=== PATIENT | male | born 1965 | race Caucasian/White ===

== ENCOUNTER 2019-05-09 04:52 | Inpatient (IN) ==
[2019-05-09] MEDS ORDERED: ROCEPHIN IM ONE (05:08)
[2019-05-09] MEDS ORDERED: XYLOCAINE-MPF 1% INJ ONE (05:08)
[2019-05-09] MEDS ORDERED: SEPTRA DS PO ONE (05:09)
--- NOTE | 2019-05-09 05:12 | PROVIDER DOCUMENTATION ---
HPI-Rash/Wound/ReCheck - General Chief Complaint: Return/Recheck Stated Complaint: RECHECK/STITCHES REMOVED-INFECTED Time Seen by Provider: 05/09/19 04:54 Allergies/Adverse Reactions: Allergies Allergy/AdvReac Type Severity Reaction Status Date / Time No Known Allergies Allergy Verified 04/23/19 20:13 Home Medications: Home Medication List Medication Instructions Recorded Confirmed Last Taken Type Cephalexin [Keflex] 500 mg PO TID #30 cap 04/23/19 Unknown Rx Hydrocodone/Acetaminophen [[place] 1 ea PO Q6H PRN PRN #12 tab 04/23/19 Unknown Rx 5-325 Tablet] Clindamycin [Cleocin] 300 mg PO Q6HR 10 Days #40 cap 05/09/19 Unknown Rx - History of Present Illness-Dermatology Nature of Presenting Problem: 53 y/o WM c/o rt arm swelling and redness for the past two days after he says he brushed his wound on something. Pt recently (3 days ago) had sutures removed in ER from a fall that he had on a ladder about 2 weeks ago. Pt denies any other problems other than redness and mid swelling to rt forearm. Pt adds that wound has been draining some from healing lac. Location: reports: upper extremity (healing rt arm wound with thick yellow drainage) Quality: reports: painful Severity: reports: mild Onset/Duration: reports: 2 days ago Timing: reports: still present Context/Associated Symptoms: reports: laceration (healing wound to rt arm.) Identifiable cause?: Yes Locality of [place]: Home Similar Symptoms Previously?: No Recently seen or treated by another doctor?: Yes - Recheck Treated days ago.: 3 Previous Treatment: laceration repair (suture removal) Antibiotics given: none (pt did have abx while sutures were in but none for several days.) Symptoms since procedure:: reports: redness, discharge Review of Systems - Adult - REVIEW OF SYSTEMS - ADULT Constitutional: reports: no symptoms reported, see HPI Eyes: reports: no symptoms reported, see HPI Ears, Nose, Mouth & Throat: reports: no symptoms reported, see HPI Cardiovascular: reports: no symptoms reported, see HPI Respiratory: reports: no symptoms reported, see HPI Gastrointestinal: reports: no symptoms reported, see HPI Genitourinary: reports: no symptoms reported, see HPI Musculoskeletal: reports: no symptoms reported, see HPI Integumentary: reports: see HPI, other (infected lac to rt forearm that is healing.) Neurological: reports: no symptoms reported, see HPI Psychiatric: reports: no symptoms reported, see HPI Endocrine: reports: no symptoms reported, see HPI Hematologic/Lymphatic: reports: no symptoms reported, see HPI Allergic/Immunologic: reports: no symptoms reported, see HPI All Other Systems: Reviewed and Negative Past History - Adult - PAST MEDICAL HISTORY-ADULT Review of Records: reports: Nursing Assessment Review, Medications Reviewed, Social history reviewed & non-contributory. Major Childhood Illnesses: reports: denies history Cardiovascular: reports: HTN Respiratory: reports: denies history Gastrointestinal: reports: denies history Genitourinary: reports: denies history Musculoskeletal: reports: denies history Psychiatric: reports: denies history Endocrine/Immune: reports: denies history - PRIOR SURGERIES/PROCEDURES Surgical/Procedure History: reports: reviewed, not pertinent - FAMILY HISTORY Family History: reviewed, not pertinent Physical Exam-General - PHYSICAL EXAM-ADULT Initial Vital Signs Reviewed: Yes - CONSTITUTIONAL General Appearance: appears well, alert, no apparent distress - EYES Eyes: PERRL/EOMI - HEAD, EARS, NOSE, MOUTH & THROAT HENMT: normocephalic/atraumatic, moist mucous membranes - NECK Neck: non-tender, full range of motion, supple - RESPIRATORY Respiratory: chest non-tender, lungs clear, normal breath sounds - CARDIOVASCULAR Cardiovascular: normal peripheral pulses, regular rate, rhythm, no edema, no gal lop, no JVD, no murmur - GASTROINTESTINAL (ABDOMEN) Abdominal Exam: normal bowel sounds, non tender, soft, no organomegaly, no pulsatile mass - LYMPHATIC Lymphatic: no adenopathy - MUSCULOSKELETAL Back Exam: normal inspection, no CVA tenderness, no vertebral tenderness, other (rt forearm N/V intact. good radial pulse. no pain with PROM.) Extremity: normal range of motion, normal capillary refill, erythema, inflammation ( erythema and swelling to rt forearm wound. there is also small amout of drainage (yellow) to forearm.) Progress - PLAN OF CARE/RESULTS Progress/Plan/Lab Results: Vital Signs - 8 hr 05/09/19 04:59 Temperature 98.3 F Pulse Rate 92 H Respiratory Rate 18 Blood Pressure 107/63 O2 Sat by Pulse Oximetry 96 05/09/19 05:30 Gram Stain - Final Arm - Right Laboratory Results - last 24 hr 05/09/19 05/09/19 05/09/19 05:30 05:30 06:40 WBC 20.26 H RBC 4.31 L Hgb 13.1 L Hct 39.0 L MCV 90.5 MCH 30.4 MCHC 33.6 RDW Std Deviation 13.2 Plt Count 248 MPV 9.7 Immature Gran % (Auto) 0.2 Neut % (Auto) 84.3 H Lymph % (Auto) 7.3 L [place] % (Auto) 7.9 Eos % (Auto) 0.2 Baso % (Auto) 0.1 Immature Gran # (Auto) 0.04 Neut # (Auto) 17.06 H Lymph # (Auto) 1.48 [place] # (Auto) 1.61 H Eos # (Auto) 0.05 Baso # (Auto) 0.02 Sodium 134 L Potassium 4.6 Chloride 100 Carbon Dioxide 21 L Anion Gap 13 BUN 26 H Creatinine 1.3 H Estimated GFR/1.73 m2 58 BUN/Creatinine Ratio 20 Glucose 133 H Calculated Osmolality 275 Calcium 8.5 L Total Bilirubin 0.26 AST 11 ALT 10 Alkaline Phosphatase 52 Total Protein 6.9 Albumin 4.3 Globulin 2.6 Albumin/Globulin Ratio 1.7 Plasma Lactate 1.4 Orders Category Date Time Status BLOOD CULTURE [BLDCUL] Stat Lab 05/09/19 07:20 Results CBC WITH ELECTRONIC DIFF [HEME] Stat Lab 05/09/19 05:30 Completed COMPREHENSIVE METABOLIC PANEL [CHEM] Stat Lab 05/09/19 05:30 Completed LACTATE, PLASMA [CHEM] Stat Lab 05/09/19 06:40 Completed WOUND CULTURE INC GRAM STAIN [RM] Routine Lab 05/09/19 05:30 Results CefTRIAXONE [Rocephin] Med 05/09/19 05:08 Discontinued 1 gm IM NOW ONE Lidocaine 1% Pf [Xylocaine-Mpf 1%] Med 05/09/19 05:08 Discontinued 5 ml INJ NOW ONE Sulfamethoxazole/Tmp D.s. [Septra Ds] Med 05/09/19 05:09 Discontinued 1 each PO NOW ONE Venous U/S Right Arm Stat Ther 05/09/19 06:18 Completed Result Diagrams: 05/09/19 05:30 05/09/19 05:30 - REASSESSMENT Reassessment #1 Time Reassessed: 10:08 (receved @ S/O. Seen, examines. Arm is markedly swollen. sl erythema) - CONSULTS/PCP/HOSPITALIST Notification #1 *Consult/PCP/Hospitalist*: Hospitalist Time Discussed: 10:30 Consult Disposition: Will see in ED, Admit - CHANGE OF SHIFT REPORT (ED Provider) 1 Report Given and Care Transferred to:: Dr Kinney Time of Transfer: 07:00 Items Pending: Labs, Ultrasound Results Departure - Departure Date of Disposition Decision: 05/09/19 Time of Disposition Decision: 10:30 DIAGNOSIS: Right forearm cellulitis Disposition: ADMITTED INPATIENT 09 Certified Medical Emergency: Emergent Condition: Stable Additional Freetext Instructions: Follow up with your dR in 1-2 days, to ER sooner if worse. ED Follow Up Instructions: You have been treated by a care provider in the Emergency Department. These instructions are being provided to you so you can have an understanding of how to care for yourself upon discharge. Upon discharge from the Emergency Department, you are responsible for making arrangements for follow-up care by a physician of your choice. Take all prescribed medications as directed. Return to the Emergency Department immediately for any new or worsening symptoms. You may call the Physician Referral phone number at [phone] to obtain a list of Physicians who are taking new patients. Prescriptions: Clindamycin [Cleocin] 300 mg PO Q6HR 10 Days #40 cap Referrals and Follow-Ups: Alisia Farris MD [Primary Care Provider] - Discharge Education: Cellulitis, Adult, Wound Infection, [id number], Cellulitis, Adult, [id number], Wound Care, Adult - Critical Care Note This patient required my direct & personal management of CC.: No Attestation - Physician/ CATINA Attestation Patient care was provided by Advanced Practice Provider:: No The physician spent face to face time with patient:: Yes Advanced Practice Provider documentation review:: Supervising physician onsite and consulted in the evaluation and care of this patient. The physician did have a face to face encounter with the patient.
[2019-05-09 05:56] LABS: BASO# 0.02 X1000 (0.0-0.2); BASO% 0.1 % (0.0-0.8); EOS# 0.05 X1000 (0.0-0.7); EOS% 0.2 % (0.0-10.0); HEMOGLOBIN 13.1 g/dL (14.0-18.0); IMM GRAN# 0.04 X1000 (0.0-0.04); IMM GRAN% 0.2 % (0.0-0.5); LYMPH# 1.48 X1000 (1.2-3.4); LYMPH% 7.3 % (20.5-51.1); MCH 30.4 PG (27-31); MCHC 33.6 g/dL (33-37); MCV 90.5 FL (81-99); MONO# 1.61 X1000 (0.11-0.59); MONO% 7.9 % (1.7-9.3); MPV 9.7 FL (7.4-10.4); NEUT# 17.06 X1000 (1.4-6.5); NEUT% 84.3 % (42.2-75.2); PLT 248 X1000 (130-400); RBC 4.31 XMIL (4.7-6.1); RDW 13.2 % (11.5-14.5); WBC 20.26 X1000 (4.8-10.8)
[2019-05-09 07:51] LABS: ALB/GLOB RATIO 1.7; ALBUMIN 4.3 g/dL (3.5-5.0); CALCIUM 8.5 mg/dL (8.8-10.2); CREATININE 1.3 mg/dL (0.7-1.2); POTASSIUM 4.6 mmol/L (3.5-5.1); TOTAL BILIRUBIN 0.26 mg/dL (0.20-1.00); TOTAL PROTEIN 6.9 g/dL (6.3-8.3)
[2019-05-09] MEDS ORDERED: MORPHINE IV ONE (11:00)
[2019-05-09] MEDS ORDERED: TYLENOL PO PRN (11:48)
[2019-05-09] MEDS ORDERED: ZOFRAN IV PRN (11:48)
[2019-05-09] MEDS ORDERED: ZANAFLEX PO PRN (11:54)
[2019-05-09] MEDS ORDERED: MORPHINE IV PRN (11:59)
[2019-05-09] MEDS ORDERED: VANCOMYCIN IV PER PHARMACY MISC SCH (12:00)
[2019-05-09] MEDS ORDERED: ROCEPHIN 1 GM in NS 50 ML IV SCH (12:00)
[2019-05-09] MEDS ORDERED: MAXIPIME 1 GM in NS 50 ML IV SCH (12:15)
[2019-05-09 12:26] LABS: INR 2.26; PROTIME 26.6 Seconds (11.0-16.0)
[2019-05-09] MEDS: NORCO-7.5 PO PRN ×2 (13:42→20:31)
[2019-05-09] MEDS: NS 1,000 ML IV SCH (13:42)
[2019-05-09] MEDS: NICODERM PATCH TD SCH (15:36)
--- NOTE | 2019-05-09 16:17 | HISTORY AND PHYSICAL ---
CHIEF COMPLAINT: Edema to right arm, with fever and dizziness. PRIMARY CARE PHYSICIAN: Dr. Holguin. HISTORY OF PRESENT ILLNESS: Mr. Carter is a 53-year-old male with a past medical history of hypertension, CVA, tobacco dependency, and chronic pain. The patient presented to the ER on 04/23/2019 where he fell off a ladder and had a laceration to the right arm. The arm was sutured in the ER. The patient was sent home on p.o. Keflex and p.o. clindamycin. The patient presented back to the ER 3 days ago and had his sutures removed. The patient has noticed that his right arm over the past 2 days has started to become edematous, with notable pain and erythema. He said he believes that the pain is worse since he bumped his arm up against something. The patient subsequently decided to come to the ER today when he noticed drainage from the wound and the pain was worse. The patient states that he did finish all his antibiotics and he thought the arm was better until 2 days ago. The patient's right arm is noted to be very edematous with a lot of erythema noted along the lower part of the right arm. There is a scab noted to the lateral part of the right arm that does have a small amount of drainage at the very end of the scab. The laceration seems to be mostly closed with the scab. The patient states that his arm is very painful to touch. He does state that he has had fevers and he has been very dizzy. The patient seems in somewhat distress from the pain at the present time. The patient states that he does have a history of chronic pain and takes Zanaflex and this is from the back pain and knee pain from arthritis. The patient is noted to have hypertension and takes several home medications for his hypertension. He also has history of high cholesterol and takes Crestor. The patient states that he has had a history of multiple strokes and TIA's in the past. He is on Coumadin. The patient does admit to having a carotid ultrasound done and stated there was some blockage, but he has not never had surgery to remove this blockage. The patient is on Coumadin at home for this and is followed by Dr. Mandujano with PT and INRs routinely. The patient denies any chest pain at this time. Does state he has had a cough. Did note some rhonchi to the left upper anterior chest wall. Upon expiration. The patient does state he has had some congestion with his cough but has not been able to produce any mucus. LABORATORY: Findings in the ER show a white blood cell count of 20.26, with a sodium of 134 with a BUN of 26 and a creatinine of 1.3. Plasma lactate was negative at at 1.4. PT, INR showed a PT of 26.6, an INR of 2.26. PAST MEDICAL HISTORY: Hypertension, CVA, TIA, chronic pain, hyperlipidemia. PAST SURGICAL HISTORY: Appendectomy. FAMILY HISTORY: Mother from lung cancer and father from diabetes. A sister from hypertension. A brother from an [place]. SOCIAL HISTORY: Patient lives in [place]. States he works at [employer]. He was on vacation when he fell off the ladder and hurt his elbow and he has hardly been able to work since then. The patient admits to smoking half a pack of cigarettes a day. He denies any illicit drug or alcohol abuse. ALLERGIES: No known drug allergies. MEDICATIONS: 1. Elavil 50 mg p.o. at bedtime. 2. Norvasc 10 mg p.o. daily. 3. Atenolol 50 mg p.o. every morning. 4. Keflex 500 mg p.o. t.i.d. 5. Clindamycin 300 mg p.o. q.6 hours. 6. [place] 5/325 one tablet p.o. q.6 hours p.r.n. pain. 7. Zestril 40 mg p.o. every morning. 8. Crestor 40 mg p.o. at bedtime. 9. Zanaflex 4 mg p.o. b.i.d. p.r.n. spasms. 10. Coumadin 5 mg p.o. at bedtime. LABS AND DIAGNOSTICS: White blood cell count 20.26, hemoglobin 13.1, hematocrit 39, platelet count is 248,000, PTT is 26.6, INR is 2.26, sodium is 134, potassium is 4.6, chloride is 100, carbon dioxide is 21, BUN is 26, creatinine is 1.3. Estimated GFR is 58. Glucose is 133, calcium is 8.5, bilirubin is 0.26, AST is 11, ALT is 10, alkaline phosphatase is 52. Plasma lactate is 1.4. REVIEW OF SYSTEMS: A 12 point review of systems has been performed and are negative except as stated above in the HPI this. EXAMINATION: Vital Signs: Temperature 98.6, heart rate 68, respiratory rate 18, blood pressure 113/77, O2 saturation 98% on room air. Weight 200 pounds, height 6 feet. General: This is a well-nourished, well-developed 53-year-old male lying in the ER stretcher in some what distress from pain. States he is having pain to the right arm. HEENT: Atraumatic, normocephalic. Pupils equal, round, reactive to light. Mucous membranes are moist. Neck: Supple. No lymphadenopathy. Trachea is midline. No JVD. Cardiovascular: Regular rate and rhythm. No murmurs, gallops, or rubs noted S1, S2. Respiratory: Left lung sounds. Rhonchi noted on expiration. Other lung miguel are clear with equal chest excursion. Respirations: nonlabored with no accessory muscle usage. Abdomen: Soft, nontender, nondistended. Bowel sounds are present. Neurologic: The patient is awake, alert and oriented x 3. Follows all commands. Able to move all extremities. Musculoskeletal: Full distal strength noted. No abnormalities or deformities. Extremities: No clubbing or cyanosis. No edema, except to the right arm. There is edema and erythema to Right arm noted. There is a laceration noted to the lateral aspect of the right arm. There is a large scab noted over the wound. The wound is closed. There is a small amount of drainage to the end of the scab, but the wound is mostly code close. DP and PT pulses are present and palpable. Skin: Warm, dry, mostly intact except for a laceration noted to the right lateral aspect of the arm. There is notable edema and erythema noted to the lower right arm. No diaphoresis noted. ASSESSMENT AND PLAN: 1. Right arm cellulitis. We will admit this patient to the medical floor. Start this place the patient on IV fluid hydration. We have started Maxipime and Zyvox on this patient. Dr. Khai Mclaughlin for ID has been consulted. 2. Hypertension. We have restarted the patient's home medications for hypertension. We will monitor his blood pressure routinely. 3. Chronic pain. The patient does have a history of chronic back pain and leg pain. He takes Zanaflex. I have reordered his Zanaflex. I have also ordered him [place] and for mild pain and morphine for severe pain. 4. CVA. The patient is on Coumadin at home. We will resume his Coumadin per home dose and repeat a PT and INR in the morning. His PT and INR on admit is at a therapeutic level. 5. Hyperlipidemia. We will start this patient back on his Crestor per home dose. 6. Tobacco dependency. I had started this patient on a nicotine patch. We had provided him with smoking cessation information. 7. DVT prophylaxis. We have restarted this patient's Coumadin per home dose. This should be adequate coverage for DVT prophylaxis. We will repeat a PT/INR tomorrow and adjust dose accordingly. 8. GI prophylaxis. Start this patient on Prilosec daily. Dictated by PREMA Franklin for Carolyn Jordan MD cc: Chetna Jordan MD MTDD
[2019-05-09] MEDS: ELAVIL PO SCH (20:31)
[2019-05-09] MEDS: ZYVOX PO SCH (20:31)
[2019-05-09] MEDS: CRESTOR PO SCH (20:31)
[2019-05-09] MEDS: COUMADIN PO SCH (20:31)
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
[2019-05-09] MEDS: MAXIPIME 2 GM in NS 50 ML IV SCH (20:32)
[2019-05-10] MEDS: NORCO-7.5 PO PRN ×2 (04:33→16:40)
[2019-05-10] MEDS: PRILOSEC PO SCH (05:59)
[2019-05-10 07:10] LABS: BASO# 0.02 X1000 (0.0-0.2); BASO% 0.1 % (0.0-0.8); EOS# 0.17 X1000 (0.0-0.7); EOS% 1.1 % (0.0-10.0); HEMATOCRIT 35.8 % (42.0-52.0); HEMOGLOBIN 11.9 g/dL (14.0-18.0); IMM GRAN# 0.04 X1000 (0.0-0.04); IMM GRAN% 0.3 % (0.0-0.5); LYMPH# 1.77 X1000 (1.2-3.4); LYMPH% 11.4 % (20.5-51.1); MCH 30.2 PG (27-31); MCHC 33.2 g/dL (33-37); MCV 90.9 FL (81-99); MONO# 1.34 X1000 (0.11-0.59); MONO% 8.6 % (1.7-9.3); MPV 9.6 FL (7.4-10.4); NEUT# 12.24 X1000 (1.4-6.5); NEUT% 78.5 % (42.2-75.2); PLT 212 X1000 (130-400); RBC 3.94 XMIL (4.7-6.1); RDW 13.3 % (11.5-14.5); WBC 15.58 X1000 (4.8-10.8)
[2019-05-10 07:21] LABS: INR 2.18; PROTIME 25.9 Seconds (11.0-16.0)
[2019-05-10 07:31] LABS: AGAP 10; ALB/GLOB RATIO 1.2; ALBUMIN 3.6 g/dL (3.5-5.0); ALKALINE PHOSPHATASE 44 U/L (32-122); BUN 18 mg/dL (8-22); CALCIUM 8.5 mg/dL (8.8-10.2); CHLORIDE 103 mmol/L (98-107); COSMO 270; CREATININE 1.1 mg/dL (0.7-1.2); ESTIMATED GFR > 60; GLUCOSE 103 mg/dL (70-104); GOT 8 U/L (10-34); GPT 7 U/L (10-44); POTASSIUM 4.6 mmol/L (3.5-5.1); SODIUM 134 mmol/L (136-145); TCO2 21 mmol/L (25-35); TOTAL BILIRUBIN 0.31 mg/dL (0.20-1.00); TOTAL PROTEIN 6.6 g/dL (6.3-8.3)
[2019-05-10] MEDS: MAXIPIME 2 GM in NS 50 ML IV SCH (08:53)
[2019-05-10] MEDS: NICODERM PATCH TD SCH (08:53)
[2019-05-10] MEDS: ZYVOX PO SCH ×2 (08:53→20:26)
[2019-05-10] MEDS: NS 1,000 ML IV SCH ×3 (09:18→18:11)
--- NOTE | 2019-05-10 10:47 | Diag Imaging Result Doc PS360 ---
EXAM: CT EXT UPPER RIGHT W/CONT 05/10/2019 HISTORY: swelling possible abscess TECHNIQUE: CT of the right forearm. COMMENT: There is apparent edema throughout the subcutaneous fat particularly medially. There is no discrete fluid collection to suggest an abscess. There is some subcutaneous gas seen on image 44 which may be associated with a laceration or other penetrating injury. Clinical correlation is recommended. IMPRESSION: Subcutaneous edema versus cellulitis. Electronically signed by Markell Sweet 05/10/2019 10:44 AM
--- NOTE | 2019-05-10 16:30 | PROGRESS NOTE ---
DATE: 05/10/2019 SUBJECTIVE: This is a 53-year-old male who had edema in his right arm and fever and dizziness. Past medical history includes hypertension, CVA, tobacco dependence, chronic pain. The patient presented to the ER on 04/23/2019 when he fell off a ladder, had a laceration to his right arm, and was sutured in the ER. The patient was sent home with Keflex p.o. and clindamycin p.o. Back 3 days ago. Sutures removed. The patient noticed his right arm over the past 2 days has started becoming edematous, notable for pain and erythema. He believes the pain is worse. He had some drainage from around the wound which was concerning so admitted to the hospital, started on antibiotics for right arm cellulitis. Wanted to try and get a CT, but wanted hydrate him so he would not have any renal toxicity, and it appears that the right arm CT shows skin subcutaneous edema versus cellulitis. No sign of abscess deep in the arm. OBJECTIVE: On exam today, he remains afebrile, temperature 98.4 degrees, pulse 76, respirations 16, blood pressure 130/69. Pupils are equal and round.Lungs: Clear in all lung miguel. Cardiovascular: Regular rhythm and rate without murmur or S3. Abdomen: Soft. Skin: Warm and dry. URINE OUTPUT: 1700 mL. ASSESSMENT AND PLAN: 1. Cellulitis of the right arm, treating with Zyvox and cefepime. Dr. Mclaughlin is following. He has increased his cefepime to 2 g IV q.12 h. Some of the side effects of the antibiotics have been explained to him: Rash, diarrhea, hematotoxicity. He seems to be improving. He suffered a laceration to his right arm after he hit a ladder when he fell on his hip which he injured as well. Sutures were removed about 2 days ago. We will continue present antibiotics and topical care. Other medical problems: 1. Hypertension. Watch blood pressure. 2. History of cerebrovascular accident. 3. Tobacco dependence. 4. Chronic pain syndrome. REVIEW OF HIS ORDERS: He is on Crestor 40 mg at bedtime, Coumadin 5 mg at bedtime, morphine he gets 2 mg IV q.3 h. p.r.n., Zyvox 600 mg p.o. q.12 h., Elavil 550 mg p.o. at bedtime, Norvasc 10 mg daily, Tenormin 50 mg q.a.m., nicotine patch 21 mg daily, omeprazole 40 mg daily, Zanaflex 4 mg p.o. b.i.d. p.r.n. REVIEW OF HIS RECENT LABORATORIES: White count was elevated and did come down to 15,000, hematocrit 35, hemoglobin 11. Electrolytes unremarkable. His creatinine is down to 1.1. cc: Alok Oliveira MD MTDD
[2019-05-10] MEDS: NORVASC PO SCH (16:48)
[2019-05-10] MEDS: TENORMIN PO SCH (16:49)
--- NOTE | 2019-05-10 17:11 | INFECTIOUS DISEASE PROGRESS NO ---
DATE: 05/10/2019 PRESENT ILLNESS: The patient has a right arm cellulitis. MEDICATIONS: Currently, the patient is receiving Zyvox and cefepime. PHYSICAL EXAMINATION: Vital Signs: Temperature is 98.6 degrees, pulse 69, respirations 18, blood pressure is 102/61. General: This is a healthy-appearing middle-aged male. He is in no acute distress. Head/eyes/ears/nose/throat: He can hear my spoken words and see near objects. He does not have any white patches on his tongue. Neck: No meningismus. Lungs: Clear to auscultation. Cardiovascular: Heart rate is regular. Abdomen: Soft and nontender. Extremities: The patient's right arm is still erythematous and swollen. The incision site is intact and it is not draining. Overall, I think that the erythema in the patient's arm has spread beyond what it was when he first came in, but today to me it looks like the erythema is not quite as intense as it had been. It is a animal humane agent supervisor shade of red. Also, I think that the patient's arm today might be a little bit less swollen than it was yesterday. Neurologic: The patient is alert. He is able to ambulate. He does not have any tremor. LAB AND X-RAY: The patient had a CT scan of the right arm. It shows that there is edema but no abscess. There is an area of subcutaneous gas, but this appears to be at the incision site. The creatinine today is 1.1. GFR is greater than 60. Liver function studies are normal. Blood cultures are pending. The patient's wound culture is growing gram-positive cocci. ASSESSMENT AND PLAN: Patient has a right arm cellulitis. The wound is growing a gram-positive coccus. I am going to continue Zyvox but discontinue cefepime. I have also told the patient to elevate his arm as much as possible and I am going to give orders for the patient to have his dressing changed every 12 hours. COMORBIDITIES: He does smoke cigarettes and he did have an injury to his arm when he fell off the roof. cc: Khai Mclaughlin MD
[2019-05-10] MEDS: ELAVIL PO SCH (20:26)
[2019-05-10] MEDS: COUMADIN PO SCH (20:26)
[2019-05-10] MEDS: CRESTOR PO SCH (20:26)
[2019-05-11] MEDS: PRILOSEC PO SCH (06:06)
[2019-05-11] MEDS: NORCO-7.5 PO PRN (06:06)
[2019-05-11] MEDS: NS 1,000 ML IV SCH ×2 (06:07→17:24)
[2019-05-11] MEDS: ZYVOX PO SCH (09:03)
[2019-05-11] MEDS: NICODERM PATCH TD SCH (09:03)
--- NOTE | 2019-05-11 14:36 | Extremity Venous Study ---
PROCEDURE NAME: Venous U/S Right Arm - 05/09/2019 PROCEDURE: Right upper extremity venous duplex study. DATE OF STUDY: 05/09/2019. REFERRING PHYSICIAN: Lew. READING PHYSICIAN: Rosanne. KEG RAISER: Chantelle. INDICATION: Right arm swelling. FINDINGS: The deep and superficial veins of the right upper extremity were imaged throughout their course. They are compressible, patent, and without thrombus. INTERPRETATION: No evidence of DVT or SVT of the right upper extremity. cc: Nikolas Lay MD
--- NOTE | 2019-05-11 14:42 | INFECTIOUS DISEASE PROGRESS NO ---
DATE: 05/11/2019 PRESENT ILLNESS: The patient has an oxacillin sensitive Staph aureus right arm cellulitis. MEDICATIONS: The patient currently is receiving p.o. Zyvox. PHYSICAL EXAMINATION: Vital Signs: Temperature is 97.4 degrees, pulse 81, respirations 20, blood pressure 110/66. General: This is a healthy-appearing, middle-aged male. He is in no acute distress. Head, eyes, ears, nose, throat: He can hear my spoken words and see near objects. He does not have any white coating on his tongue. Neck: There is no neck pain with movement of his neck. Lungs: Clear to auscultation. Cardiovascular: Heart rate is regular. Abdomen: Soft and nontender. Extremities: The patient's right arm is less erythematous and less swollen. The incision site is not draining. Neurologic: Patient is alert. He ambulates without difficulty. There is no tremor. LAB AND X-RAY: Culture from the patient's incision site grew an oxacillin sensitive Staph aureus. There is no other lab test for today. There is also no new radiographic study. ASSESSMENT AND PLAN: The patient has a right arm cellulitis caused by an oxacillin sensitive Staph aureus. I have discussed the plans with Dr. Oliveira. The patient is going to be discharged today on Keflex 500 mg p.o. every 8 hours for 1 week. He will be seen in my office in 1 week, at which time the patient will be examined and it will be a decision whether he can come back to work or not. I have also filled out a prescription for his Keflex 500 mg p.o. every 8 hours, #21 with 1 refill. The patient will continue with the wound care that he has been having in the hospital. I also filled out a return to work form. I put in there that the patient will be able to return to work no earlier than May 19, 2019 and possibly later, depending on how the patient's arm looks when he is seen in my office. COMORBIDITIES: The patient does smoke cigarettes. He also injured his arm when he fell off the roof, which was the cause of the infection. cc: Khai Mclaughlin MD
[2019-05-11 16:15] VITALS: BP 132/76
--- NOTE | 2019-05-11 17:11 | DISCHARGE SUMMARY ---
ADMISSION DATE: 05/09/2019 DISCHARGE DATE: 05/11/2019 PRIMARY CARE PHYSICIAN: Dr. Alisia Farris. HISTORY AND HOSPITAL COURSE: This is a 53-year-old male with a past medical history of hypertension, CVA, tobacco dependence, chronic pain. Patient presented to the emergency room on 04/23/2019 when he fell off a ladder and had a laceration to the right arm. The arm was sutured in the emergency room. The patient was sent home on Keflex and clindamycin p.o. He came back to the ER 3 days before this and had his sutures removed. The patient noticed his right arm over the past 2 days started to become edematous, notable pain and erythema. He believes that the pain is worse since he bumped his arm against something. The patient subsequently decided to come the emergency room. Noticed drainage from the wound and pain was worse. Patient states that he did finish all of his antibiotics. He said his arm was better until about 2 days ago. Right arm noted to be very edematous, lot of erythema and tender in the right upper arm. Laceration seemed to be mostly closed with a scab. So, admitted with cellulitis. Treated with IV antibiotics; we used Maxipime and Zyvox. His micro from the wound grew out Staph aureus and it was sensitive to oxacillin. His arm improved quite a bit. No more erythema. Tenderness diminished. We did a CT of that arm and did not find any abscess and so felt he could go home. DISCHARGE MEDICATIONS: He takes Elavil 50 mg at bedtime, Norvasc 10 mg daily, atenolol 50 mg q.a.m. He was on some [place] 1-2 q.6 hours. I will give him about 20 of those. We will stop the Zyvox and IV morphine. I gave NicoDerm patches, 14 of them, 1 a day and did camp head counselor about the importance of stopping smoking. Crestor 40 mg at bedtime, Zanaflex 4 mg p.o. b.i.d., and he is on Coumadin 5 mg daily. Note that his ProTime looked good at 26 and repeat was 25. FOLLOW UP: He will follow up with his primary care. He will continue the Keflex 500 mg p.o. q.8 hours for 1 week and then I think he will come back and see Dr. Mclaughlin and see how he is doing. Prescription was already, I think, called in. cc: Alok Oliveira MD
[2019-05-11] MEDS: NORVASC PO SCH (17:24)
[2019-05-11] MEDS: TENORMIN PO SCH (17:24)
== END 2019-05-11 17:25 | disposition home or self-care (01) | DRG 603 ==
LOC: ED 04:52 → SUATTDRO 04:53 → 4N 04:53
PROVIDERS: ATTEND Emergency Medicine
CPT/HCPCS: 73200; 73201; 80053; 83605; 83735; 85025; 85610; 87040; 87070; 87077; 87186; 93971; A9270; J0692; J0696; J2270; J7030; Q9967